=== PATIENT | female | born 1995 | race Two or more races ===

== ENCOUNTER 2020-11-21 10:45 | Emergency (ER) | payer MEDICAID ==
[~2020-11-21] VITALS: Ht 157.5 cm; Wt 79.6 kg
--- NOTE | 2020-11-21 11:10 | NUR ---
ASSUMED CARE OF PT AT THIS TIME FROM [facility]. CLIFF PULIDO AT BEDSIDE AT BEDSIDE FOR EVAL. 25 Y/O PRESENTS STATING "OB DR. CHANDLER SENT ME OVER, I'M 10 WEEKS , NAUSEATED ALL THE TIME, HARD TO KEEP ANYTHING DOWN, MY DOCTOR GAVE ME SUPPOSITORIES FOR THE NAUSEA AND THAT NOW GAVE ME DIARRHEA." DENIES ANY PAIN, VAGINAL BLEEDING/DISCHARGE OR CRAMPING. G3,P2,A0. LMP 09/02/20. EDC 06/19/21. CONT PULSE OX, BP MONITORS APPLIED. VSS. CALL LIGHT IN REACH. FALL PRECAUTIONS IN PLACE. A&OX4. AWAITING ORDERS.
[2020-11-21] MEDS ORDERED: FAMOTIDINE 20 MG/2 ML IVPush ONE (11:30)
[2020-11-21] MEDS ORDERED: ONDANSETRON 2MG/ML, 2ML IVPush ONE (11:30)
[2020-11-21] MEDS ORDERED: SODIUM CHLORIDE 0.9% 1,000ML IVBOLUS ONE (11:30)
[2020-11-21] MEDS ORDERED: ONDANSETRON 2MG/ML, 2ML ONE (11:42)
[2020-11-21] MEDS ORDERED: FAMOTIDINE 20 MG/2 ML ONE (11:42)
--- NOTE | 2020-11-21 11:46 | NUR ---
PT MEDICATED NOTED IN [facility] FOR NAUSEA. AMBULATORY TO RESTROOM WITH STEADY GAIT FOR CLEAN CATCH UA SAMPLE.
[2020-11-21 11:59] LABS: BASOPHILS % (AUTO) 0 % (0-1); EOSINOPHILS % (AUTO) 0 % (1-7); LYMPHOCYTES % (AUTO) 19 % (22-44); MEAN CORPUSCULAR HEMOGLOBIN 29.5 pg (27.0-34.8); MEAN CORPUSCULAR HGB CONC 34.4 g/dL (32.4-35.8); MEAN PLATELET VOLUME 9.4 fL (7.4-10.4); MONOCYTES % (AUTO) 5 % (2-9); NEUTROPHILS % (AUTO) 76 % (42-75); PLATELET COUNT 257 x10^3/uL (130-400); RED BLOOD COUNT 5.47 x10^6/uL (3.82-5.3); RED CELL DISTRIBUTION WIDTH 14.3 % (9.6-15.2)
[2020-11-21 12:01] LABS: MD NO
[2020-11-21 12:03] LABS: ALBUMIN 3.9 g/dL (3.4-5.0); ANION GAP 11 mmol/L (5-15); CALCIUM 8.8 mg/dL (8.5-10.1); CHLORIDE 104 mmol/L (98-107)
--- NOTE | 2020-11-21 12:03 | NUR ---
CLEAN CATCH UA COLLECTED AND SENT TO LAB. PT RESTING COMFORTABLY IN [facility]. DENIES ANY PAIN AND NAUSEA AT THIS TIME. VSS. CALL LIGHT IN REACH. FALL PREACAUTIONS IN PLACE.
[2020-11-21 12:22] LABS: ALANINE AMINOTRANSFERASE 32 U/L (12-78); ALKALINE PHOSPHATASE 67 U/L (45-117); BILIRUBIN,TOTAL 0.7 mg/dL (0.2-1.0); CREATININE 0.64 mg/dL (0.55-1.02)
--- NOTE | 2020-11-21 12:27 | NUR ---
UA AND LAB STILL PENDING, AWAITING RESULTS.
[2020-11-21 12:48] LABS: MICROSCOPIC INDICATED
--- NOTE | 2020-11-21 13:08 | NUR ---
BEDSIDE REPORT AND TRANSFER OF CARE TO VICKIE SCHWAB AT THIS TIME.
[2020-11-21] MEDS ORDERED: POTASSIUM CHLORIDE 20 MEQ TAB.ER.PRT ONE (13:10)
--- NOTE | 2020-11-21 13:15 | NUR ---
PT MEDICATED PER MAR
[2020-11-21] MEDS ORDERED: POTASSIUM CHLORIDE 20 MEQ TAB.ER.PRT PO ONE (13:30)
--- NOTE | 2020-11-21 13:52 | NUR ---
ASSUMED CARE OF PATIENT. REPORT GIVEN FROM ZAHEER JOHNSTON. PT WATCHING TV IN ROOM. NO ACUTE DISTRESS NOTED. VS STABLE. CALL LIGHT IN PLACE. WILL CONTINUE TO MONITOR.
[2020-11-21 14:17] VITALS: BP 98/68
== END 2020-11-21 14:19 | disposition home or self-care (01) ==
LOC: ED 13:45
DX: O23.41 Unspecified infection of urinary tract in pregnancy, first trimester (principal); O26.891 Other specified pregnancy related conditions, first trimester; O21.8 Other vomiting complicating pregnancy; R19.7 Diarrhea, unspecified; E87.6 Hypokalemia; Z3A.10 10 weeks gestation of pregnancy
CPT/HCPCS: 36415; 80053; 81001; 84702; 85025; 87086; 96361; 96374; 96375; 99285; J2405; J7030

== ENCOUNTER 2020-11-25 20:50 | Emergency (ER) | payer MEDICAID ==
[~2020-11-25] VITALS: Ht 157.5 cm; Wt 77.9 kg
[2020-11-25] MEDS ORDERED: ONDANSETRON 2MG/ML, 2ML IVPush ONE (21:30)
[2020-11-25] MEDS ORDERED: SODIUM CHLORIDE 0.9% 1,000ML IVBOLUS ONE (21:30)
[2020-11-25] MEDS ORDERED: SODIUM CHLORIDE FLUSH 10ML SYR IVF ONE (21:30)
[2020-11-25 22:01] LABS: ALANINE AMINOTRANSFERASE 61 U/L (12-78); ALBUMIN 3.7 g/dL (3.4-5.0); ANION GAP 14 mmol/L (5-15); CALCIUM 8.9 mg/dL (8.5-10.1); CHLORIDE 107 mmol/L (98-107); CREATININE 0.54 mg/dL (0.55-1.02)
[2020-11-25 22:03] LABS: ALKALINE PHOSPHATASE 75 U/L (45-117); BILIRUBIN,TOTAL 0.9 mg/dL (0.2-1.0); TOTAL PROTEIN 8.2 g/dL (6.4-8.2)
[2020-11-25 22:18] LABS: BASOPHILS % (AUTO) 0 % (0-1); EOSINOPHILS % (AUTO) 0 % (1-7); LYMPHOCYTES % (AUTO) 14 % (22-44); MEAN CORPUSCULAR HEMOGLOBIN 29.5 pg (27.0-34.8); MEAN CORPUSCULAR HGB CONC 34.6 g/dL (32.4-35.8); MEAN PLATELET VOLUME 9.9 fL (7.4-10.4); MONOCYTES % (AUTO) 4 % (2-9); NEUTROPHILS % (AUTO) 82 % (42-75); PLATELET COUNT 248 x10^3/uL (130-400); RED BLOOD COUNT 5.65 x10^6/uL (3.82-5.3); RED CELL DISTRIBUTION WIDTH 14.5 % (9.6-15.2)
[2020-11-25 22:20] LABS: MD NO
[2020-11-25] MEDS ORDERED: ONDANSETRON 2MG/ML, 2ML ONE (23:22)
--- NOTE | 2020-11-25 23:32 | NUR ---
PT MEDICATED FOR NAUSEA. IV BOLUS INFUSING. UNDERSTANDS POC. Addendum: 11/25/20 at 2338 by HBENSON PT PALE, HYPERVENTILATING D/T N/V.
--- NOTE | 2020-11-25 23:35 | NUR ---
PT STATES SHE HASN'T BEEN ABLE TO TAKE PRESCRIBED ABX FOR UTI BECAUSE OF N/V.
--- NOTE | 2020-11-25 23:41 | NUR ---
ERP AT NOW.
[2020-11-25 23:56] LABS: MICROSCOPIC INDICATED
--- NOTE | 2020-11-26 00:29 | NUR ---
PT STATES SHE FEELS "ABOUT THE SAME" AFTER IL NS AND ZOFRAN. STILL PALE, SOMEWHAT NAUSEOUS, L SIDED CHEST PAIN/HEARTBURN. VSS. CHART UP FOR RECHECK.
[2020-11-26] MEDS ORDERED: MAALOX/HYOSCYAMINE/LIDOCAINE 45 ML BTL ONE (01:08)
--- NOTE | 2020-11-26 01:15 | NUR ---
WATER AND GI COCTAIL GIVEN TO PT PER ERP.
[2020-11-26 01:26] VITALS: BP 115/76
--- NOTE | 2020-11-26 01:26 | NUR ---
PT STATES SHE FEELS A LITTLE BETTER AFTER DRINKING SOME WATER. ERP WILL BE BACK IN FOR RECHECK.
[2020-11-26] MEDS ORDERED: MAALOX/HYOSCYAMINE/LIDOCAINE 45 ML BTL PO ONE (01:30)
--- NOTE | 2020-11-26 02:00 | NUR ---
PT TOLERATING WATER. D/C INSTRUCTIONS, MEDS & F/U APPT RV'WD WITH PT, SHE VERBALIZES UNDERSTANDING. RX GIVEN X2. INSTRUCTED PT TO RETURN FOR WORSENING SYMPTOMS OR HEMATEMESIS. PT AMBULATED OUT OF ED WITHOUT DIFFICULTY, STATES FAMILY WILL PICK HER UP.
== END 2020-11-26 02:17 | disposition home or self-care (01) ==
LOC: ED 21:20
DX: O26.891 Other specified pregnancy related conditions, first trimester (principal); K22.6 Gastro-esophageal laceration-hemorrhage syndrome; K29.00 Acute gastritis without bleeding; O21.0 Mild hyperemesis gravidarum; R07.89 Other chest pain; Z3A.10 10 weeks gestation of pregnancy
CPT/HCPCS: 36415; 80053; 81001; 83690; 85025; 87086; 93005; 96361; 96374; 99284; J2405; J7030

== ENCOUNTER 2020-12-05 21:07 | Emergency (ER) | payer MEDICAID ==
[~2020-12-05] VITALS: Ht 157.5 cm; Wt 75.5 kg
--- NOTE | 2020-12-05 21:25 | NUR ---
assessment made. ERP at bedside.
[2020-12-05] MEDS ORDERED: ONDANSETRON 2MG/ML, 2ML IVPush ONE (21:30)
[2020-12-05] MEDS ORDERED: SODIUM CHLORIDE 0.9% 1,000ML IVBOLUS ONE (21:30)
[2020-12-05] MEDS ORDERED: ONDANSETRON 2MG/ML, 2ML ONE (21:37)
--- NOTE | 2020-12-05 21:40 | NUR ---
IV placed. blood drawn. IVF hung. medicated. location and measurement technician at bedside.
[2020-12-05 21:44] LABS: BASOPHILS % (AUTO) 0 % (0-1); EOSINOPHILS % (AUTO) 0 % (1-7); LYMPHOCYTES % (AUTO) 18 % (22-44); MEAN CORPUSCULAR HEMOGLOBIN 29.5 pg (27.0-34.8); MEAN CORPUSCULAR HGB CONC 35.2 g/dL (32.4-35.8); MEAN PLATELET VOLUME 10.1 fL (7.4-10.4); MONOCYTES % (AUTO) 6 % (2-9); NEUTROPHILS % (AUTO) 75 % (42-75); PLATELET COUNT 294 x10^3/uL (130-400); RED BLOOD COUNT 6.11 x10^6/uL (3.82-5.3); RED CELL DISTRIBUTION WIDTH 14.5 % (9.6-15.2)
[2020-12-05 21:46] LABS: MD NO
[2020-12-05 21:54] LABS: ALANINE AMINOTRANSFERASE 192 U/L (12-78); ALBUMIN 3.8 g/dL (3.4-5.0); CALCIUM 9.1 mg/dL (8.5-10.1); CHLORIDE 98 mmol/L (98-107); CREATININE 0.75 mg/dL (0.55-1.02)
[2020-12-05 21:56] LABS: ALKALINE PHOSPHATASE 85 U/L (45-117); BILIRUBIN,TOTAL 0.7 mg/dL (0.2-1.0); TOTAL PROTEIN 8.6 g/dL (6.4-8.2)
[2020-12-05 22:00] LABS: ANION GAP 9 mmol/L (5-15)
[2020-12-05] MEDS ORDERED: POTASSIUM CHLORIDE 20 MEQ TAB.ER.PRT ONE (22:23)
[2020-12-05] MEDS ORDERED: POTASSIUM CHLORIDE 20 MEQ PACKET PO ONE (22:30)
--- NOTE | 2020-12-05 22:40 | NUR ---
patient states feel the same. no vomiting noted at this time.
[2020-12-05 23:18] VITALS: BP 110/69
--- NOTE | 2020-12-05 23:19 | NUR ---
patient to bathroom with steady gait.
--- NOTE | 2020-12-05 23:24 | NUR ---
urine sample obtained and sent to lab.
[2020-12-05 23:33] LABS: MICROSCOPIC INDICATED
[2020-12-05] MEDS ORDERED: CEFDINIR 300 MG CAPSULE ONE (23:48)
[2020-12-06] MEDS ORDERED: CEFDINIR 300 MG CAPSULE PO ONE
--- NOTE | 2020-12-06 00:39 | NUR ---
Patient/Caregiver given discharge instructions and they have confirmed that they understand the instructions. Patient ambulatory with steady gait.
== END 2020-12-06 00:48 | disposition home or self-care (01) ==
LOC: ED 22:59
DX: O23.11 Infections of bladder in pregnancy, first trimester (principal); O21.1 Hyperemesis gravidarum with metabolic disturbance; R00.0 Tachycardia, unspecified; Z3A.12 12 weeks gestation of pregnancy
CPT/HCPCS: 36415; 76801; 80053; 81001; 83690; 85025; 87086; 96361; 96374; 99284; J2405; J7030

== ENCOUNTER 2020-12-10 13:24 | Inpatient (IN) | payer MEDICAID ==
[~2020-12-10] VITALS: Ht 157.5 cm; Wt 79.5 kg
[2020-12-10] MEDS ORDERED: ONDANSETRON 2MG/ML, 2ML IVPush ONE (14:00)
[2020-12-10] MEDS ORDERED: SODIUM CHLORIDE FLUSH 10ML SYR IVF ONE (14:00)
[2020-12-10] MEDS ORDERED: SODIUM CHLORIDE 0.9% 1,000ML IVBOLUS ONE (14:00)
[2020-12-10] MEDS ORDERED: ONDANSETRON 2MG/ML, 2ML ONE (14:07)
--- NOTE | 2020-12-10 14:10 | NUR ---
IV started, Zofran given and NS bolus up and running well. US tech arrived and asked to wait for straight cath for full bladder for her exam.
[2020-12-10 14:26] LABS: ALBUMIN 3.3 g/dL (3.4-5.0); ANION GAP 7 mmol/L (5-15); CALCIUM 8.9 mg/dL (8.5-10.1); CHLORIDE 99 mmol/L (98-107); MEAN CORPUSCULAR HEMOGLOBIN 29.2 pg (27.0-34.8); MEAN CORPUSCULAR HGB CONC 34.5 g/dL (32.4-35.8); MEAN PLATELET VOLUME 9.9 fL (7.4-10.4); PLATELET COUNT 247 x10^3/uL (130-400); RED BLOOD COUNT 5.58 x10^6/uL (3.82-5.3); RED CELL DISTRIBUTION WIDTH 14.2 % (9.6-15.2)
[2020-12-10 14:30] LABS: MD YES
--- NOTE | 2020-12-10 14:30 | NUR ---
Pt reassessed for nausea after manager intermediate with stated nausea resolved at this time. US finishing up at this time.
[2020-12-10 14:44] LABS: ALANINE AMINOTRANSFERASE 197 U/L (12-78); ALKALINE PHOSPHATASE 76 U/L (45-117); BILIRUBIN,TOTAL 0.7 mg/dL (0.2-1.0); TOTAL PROTEIN 7.6 g/dL (6.4-8.2)
[2020-12-10 14:45] LABS: <RBC MORPHOLOGY> NORMAL; LYMPH#(MANUAL) 2.03 x10^3/uL (1-3.4); LYMPHS% (MANUAL) 15 % (22-44); MONOS#(MANUAL) 0.95 x10^3/uL (0.3-2.7); MONOS% (MANUAL) 7 % (2-9); SEG#(MANUAL) 10.53 x10^3/uL (1.8-6.8); SEGS% (MANUAL) 78 % (42-75)
[2020-12-10 14:46] LABS: <PLATELET ESTIMATE> ADEQUATE; <PLT MORPHOLOGY> NORMAL PLT MORPH
--- NOTE | 2020-12-10 14:50 | NUR ---
Attempt to straight cath for UA unsuccessful. Sterile technique used with no urine obtained. Small amount of urine in catheter noted and afterwards pt states she feels like she needs to urinate. Asked if she would like to try a second time and she said yes. New straight cath obtained and second attempt with sterile technique performed, again with small amount in catheter but none able to drain into collection tube. Bladder pressure applied manually and positioning manipulated with bed for gravity assist without results. IV bolus completed at this time and clamped.
[2020-12-10] MEDS ORDERED: POTASSIUM CHLORIDE 20 MEQ TAB.ER.PRT PO ONE (15:00)
[2020-12-10] MEDS ORDERED: POTASSIUM CHLORIDE 40 MEQ in LACTATED RINGERS 1,000 ML IV SCH ×3 (15:00→20:15)
--- NOTE | 2020-12-10 15:03 | NUR ---
Report given to ZAHEER Barrett and care transferred. Aware of unsuccessful UA attempts. PA to be notified as well.
--- NOTE | 2020-12-10 15:12 | NUR ---
ASSUMED PT CARE FROM ZAHEER HENSON. [facility] MONITORING IN PLACE, WCMARYANN.
[2020-12-10] MEDS ORDERED: POTASSIUM CHLORIDE 20 MEQ TAB.ER.PRT ONE (16:16)
[2020-12-10 16:29] LABS: MICROSCOPIC INDICATED
--- NOTE | 2020-12-10 18:01 | NUR ---
BREAK RN: PT LAYING ON GURNEY CALMLY. NADN/VSS. CALL LIGHT WITHIN REACH. NO NEEDS AT THIS TIME
[2020-12-10] MEDS ORDERED: SODIUM CHLORIDE FLUSH 10ML SYR IVF PRN (18:30)
[2020-12-10] MEDS ORDERED: POLYETHYLENE GLYCOL 17 GM PACKET PO PRN (19:00)
[2020-12-10] MEDS ORDERED: ONDANSETRON ODT 4 MG PO PRN (19:00)
[2020-12-10] MEDS ORDERED: DOCUSATE 100 MG CAPSULE PO PRN (19:00)
[2020-12-10] MEDS ORDERED: ACETAMINOPHEN 325 MG TABLET PO PRN (19:00)
[2020-12-10] MEDS ORDERED: SODIUM CHLORIDE 0.9% 1,000 ML IV SCH (19:30)
[2020-12-10] MEDS ORDERED: POTASSIUM CHLORIDE 40 MEQ in SODIUM CHLORIDE 0.9% 500 ML IV ONE (19:30)
[2020-12-10 21:49] VITALS: BP 90/65
[2020-12-10] MEDS: ONDANSETRON 2MG/ML, 2ML IVPush PRN (21:56)
[2020-12-10] MEDS ORDERED: ONDA4TAB13 SL (23:11)
[2020-12-11 01:16] VITALS: BP 113/76
[2020-12-11] MEDS: ONDANSETRON 2MG/ML, 2ML IVPush PRN ×3 (04:19→17:47)
[2020-12-11 05:10] LABS: BASOPHILS % (AUTO) 0 % (0-1); EOSINOPHILS % (AUTO) 0 % (1-7); LYMPHOCYTES % (AUTO) 24 % (22-44); MEAN CORPUSCULAR HEMOGLOBIN 29.5 pg (27.0-34.8); MEAN CORPUSCULAR HGB CONC 34.7 g/dL (32.4-35.8); MONOCYTES % (AUTO) 5 % (2-9); NEUTROPHILS % (AUTO) 70 % (42-75); PLATELET COUNT 232 x10^3/uL (130-400); RED BLOOD COUNT 4.92 x10^6/uL (3.82-5.3); RED CELL DISTRIBUTION WIDTH 14.7 % (9.6-15.2)
[2020-12-11 05:17] LABS: MD NO
[2020-12-11 05:19] LABS: CHLORIDE 104 mmol/L (98-107)
[2020-12-11 05:38] LABS: ALANINE AMINOTRANSFERASE 145 U/L (12-78); ALKALINE PHOSPHATASE 64 U/L (45-117); ANION GAP 5 mmol/L (5-15); BILIRUBIN,TOTAL 0.6 mg/dL (0.2-1.0); CALCIUM 8.2 mg/dL (8.5-10.1); CHOL/HDL RATIO 3.8; CHOLESTEROL, TOTAL 129 mg/dL (140-239); HDL CHOL % 26 % (28-40); HDL CHOLESTEROL (DIRECT) 34 mg/dL (40-60); LDL CHOLESTEROL,CALCULATED 64 mg/dL (54-169); LDL/HDL RATIO 1.9 (0.5-3.0); TOTAL PROTEIN 6.4 g/dL (6.4-8.2); TRIGLYCERIDES 155 mg/dL (50-200); VLDL CHOLESTEROL 31 mg/dL (0-25)
[2020-12-11 06:50] VITALS: BP 102/70
[2020-12-11] MEDS ORDERED: POTASSIUM PHOSPHATE 22 MEQ in SODIUM CHLORIDE 0.9% 500 ML IV ONE (07:30)
[2020-12-11] MEDS: METRONIDAZOLE PMX 500MG/100ML 100 ML IV SCH ×2 (11:28→22:38)
[2020-12-11] MEDS: SODIUM CHLORIDE 0.9% 1,000 ML IV SCH (11:28)
[2020-12-11] MEDS: PYRIDOXINE 25MG TABLET PO SCH ×3 (11:29→23:31)
[2020-12-11 13:14] VITALS: BP 124/73
[2020-12-11 19:26] VITALS: BP 108/73
[2020-12-12 00:23] VITALS: BP 99/64
[2020-12-12] MEDS: ONDANSETRON 2MG/ML, 2ML IVPush PRN ×2 (00:56→07:44)
[2020-12-12] MEDS: SODIUM CHLORIDE 0.9% 1,000 ML IV SCH (01:35)
[2020-12-12] MEDS: PYRIDOXINE 25MG TABLET PO SCH ×4 (05:08→22:26)
[2020-12-12 05:44] LABS: BASOPHILS % (AUTO) 1 % (0-1); EOSINOPHILS % (AUTO) 0 % (1-7); LYMPHOCYTES % (AUTO) 31 % (22-44); MEAN CORPUSCULAR HEMOGLOBIN 29.6 pg (27.0-34.8); MEAN CORPUSCULAR HGB CONC 34.6 g/dL (32.4-35.8); MEAN PLATELET VOLUME 9.7 fL (7.4-10.4); MONOCYTES % (AUTO) 6 % (2-9); NEUTROPHILS % (AUTO) 62 % (42-75); PLATELET COUNT 197 x10^3/uL (130-400); RED BLOOD COUNT 4.34 x10^6/uL (3.82-5.3); RED CELL DISTRIBUTION WIDTH 14.4 % (9.6-15.2)
[2020-12-12 05:48] LABS: MD NO
[2020-12-12 05:49] LABS: ALANINE AMINOTRANSFERASE 91 U/L (12-78); ALBUMIN 2.6 g/dL (3.4-5.0); ANION GAP 7 mmol/L (5-15); CHLORIDE 106 mmol/L (98-107); CREATININE 0.32 mg/dL (0.55-1.02)
[2020-12-12 05:51] LABS: ALKALINE PHOSPHATASE 54 U/L (45-117); BILIRUBIN,TOTAL 0.5 mg/dL (0.2-1.0); TOTAL PROTEIN 5.8 g/dL (6.4-8.2)
[2020-12-12 07:21] VITALS: BP 100/66
[2020-12-12] MEDS: NS + 40MEQ KCL 1,000 ML IV SCH ×2 (07:44→23:17)
[2020-12-12] MEDS ORDERED: PROMETHAZINE 12.5 MG SUPP PR PRN (11:00)
[2020-12-12] MEDS ORDERED: CALCIUM CARBONATE 500 MG TAB.CHEW PO PRN (11:30)
[2020-12-12 12:34] VITALS: BP 101/69
[2020-12-12] MEDS: METRONIDAZOLE PMX 500MG/100ML 100 ML IV SCH ×2 (13:08→22:26)
[2020-12-12] MEDS: SUCRALFATE 1 GM/10 ML UDC PO SCH ×3 (13:08→20:17)
[2020-12-12 18:34] VITALS: BP 108/65
[2020-12-12] MEDS ORDERED: DOXYLAMINE 25MG TABLET PO SCH (21:00)
[2020-12-13 00:28] VITALS: BP 114/79
[2020-12-13] MEDS: ONDANSETRON 2MG/ML, 2ML IVPush PRN (05:24)
[2020-12-13] MEDS: PYRIDOXINE 25MG TABLET PO SCH ×3 (05:24→17:02)
[2020-12-13 05:49] LABS: ANION GAP 5 mmol/L (5-15); CALCIUM 8.1 mg/dL (8.5-10.1); CHLORIDE 106 mmol/L (98-107); CREATININE 0.29 mg/dL (0.55-1.02)
[2020-12-13 06:36] VITALS: BP 101/67
[2020-12-13] MEDS: SUCRALFATE 1 GM/10 ML UDC PO SCH ×3 (07:16→17:02)
[2020-12-13] MEDS ORDERED: POTASSIUM PHOSPHATE 22 MEQ in SODIUM CHLORIDE 0.9% 500 ML IV ONE (08:00)
[2020-12-13] MEDS: METRONIDAZOLE PMX 500MG/100ML 100 ML IV SCH (11:01)
[2020-12-13 12:21] VITALS: BP 106/72
[2020-12-13] MEDS ORDERED: ONDA4TAB13 SL (14:29)
[2020-12-13] MEDS ORDERED: PROM12.56 PR (14:29)
[2020-12-13] MEDS ORDERED: METR-90 PO (14:29)
[2020-12-13] MEDS ORDERED: PYRI25TA2 PO (14:29)
== END 2020-12-13 18:38 | disposition home or self-care (01) | DRG 832 ==
LOC: ED 15:59 → EDIP 18:32 → 3N 19:28
PROVIDERS: ADMIT Internal Medicine; ATTEND Internal Medicine
PROC: 0T9B30Z Drainage of Bladder with Drainage Device, Percutaneous Approach (ICD-10-PCS; principal; 2020-12-10)
DX: O21.1 Hyperemesis gravidarum with metabolic disturbance (principal); O23.42 Unspecified infection of urinary tract in pregnancy, second trimester; O20.0 Threatened abortion; O99.282 Endocrine, nutritional and metabolic diseases complicating pregnancy, second trimester; E87.6 Hypokalemia; E86.0 Dehydration; E83.39 Other disorders of phosphorus metabolism; Z87.19 Personal history of other diseases of the digestive system; Z3A.14 14 weeks gestation of pregnancy
CPT/HCPCS: 36415; 76801; 80048; 80053; 80061; 81001; 83036; 83735; 84100; 84443; 84702; 85025; 86901; 87086; 93005; 96361; 96374; G0378; J2405; J3480; Q0162; J7030; J7040; J7120